=== PATIENT | male | born 1980 | race African-American/Black ===

== ENCOUNTER 2017-08-09 05:01 | Emergency (ER) | payer BC ==
[~2017-08-09] VITALS: Ht 182.9 cm; Wt 88.5 kg
[2017-08-09] MEDS ORDERED: NOHOMEMEDICATIONS (05:29)
[2017-08-09 05:34] LABS: URINE BILIRUBIN NEGATIVE (Negative); URINE BLOOD 2+ (Negative); URINE CLARITY CLEAR; URINE COLOR YELLOW; URINE GLUCOSE-RANDOM* NEGATIVE (Negative); URINE KETONES NEGATIVE (Negative); URINE LEUKOCYTES-REFLEX NEGATIVE (Negative); URINE NITRITE-REFLEX NEGATIVE (Negative); URINE PROTEIN (DIPSTICK) NEGATIVE (Negative); URINE SPECIFIC GRAVITY >= 1.030 (1.005-1.035); URINE UROBILINOGEN 0.2 E.U./dl (0.2-1.0)
[2017-08-09 05:37] LABS: ABSOLUTE NEUTROPHILS 7.6 thou/uL (1.4-8.2); BASOPHILS 0.9 % (0.0-2.0); EOSINOPHILS 2.8 % (0.0-3.0); HEMATOCRIT 45.6 % (42.0-52.0); HEMOGLOBIN 15.6 gm/dL (14.0-18.0); LYMPHOCYTES 26.9 % (24.0-44.0); MCHC 34.2 g/dL (28.0-37.0); MCV 96.4 fL (80.0-100.0); MONOCYTES 9.6 % (1.0-8.0); PLATELET COUNT 191 thou/uL (150-400); POLYS 59.8 % (36.0-66.0); RBC 4.73 mil/uL (4.50-6.00); RDW 14.7 % (10.5-14.5); WBC 12.7 thou/uL (4.0-11.0)
[2017-08-09 05:49] LABS: BACTERIA-REFLEX None Seen /HPF (None Seen); CASTS None Seen /LPF (None Seen); CRYSTALS None Seen /LPF (None Seen); MUCUS 4-6 Moderate strn/LPF (None Seen); SQUAMOUS None Seen /LPF (0-3); URINE WBC-REFLEX None Seen /HPF (0-5)
[2017-08-09 05:55] LABS: CALCIUM 9.3 mg/dL (8.5-10.1); CREATININE 1.4 mg/dL (0.7-1.3); POTASSIUM 4.1 mmol/L (3.5-5.1)
[2017-08-09 05:59] LABS: TOTAL BILIRUBIN 0.5 mg/dL (<0.1-1.0); TOTAL PROTEIN 8.1 g/dL (6.4-8.2)
[2017-08-09] MEDS ORDERED: PROAIR HFA8.5 GM INH (06:37)
[2017-08-09] MEDS ORDERED: NORCO 5-325 TA1 EACH PO (06:37)
[2017-08-09] MEDS ORDERED: SYMBICORT160 MCG/4. INH (06:50)
[2017-08-09 06:54] VITALS: BP 146/95
== END 2017-08-09 06:55 | disposition home or self-care (01) ==
LOC: ER 05:01
PROVIDERS: Emergency Medicine
DX: K85.90 Acute pancreatitis without necrosis or infection, unspecified (principal); R31.9 Hematuria, unspecified; D72.829 Elevated white blood cell count, unspecified